=== PATIENT | female | born 1960 | race Caucasian/White ===

== ENCOUNTER → 2019-06-11 | Outpatient (CLI) | payer OTHER ==
--- NOTE | 2019-06-11 15:05 | BD ---
EXAMINATION TYPE: Axial Bone Density DATE OF EXAM: 06/11/2019 COMPARISON: NONE CLINICAL HISTORY: Z 13.820 Height: 63 IN Weight: 159 LBS FRAX RISK QUESTIONS: Family History (Parent hip fracture): YES MOTHER Secondary Osteoporosis: 3. Menopause before 45: AGE 46 RISK FACTORS HISTORY OF: Family History of Osteoporosis: YES MOTHER, AUNTS X 3 (M) Active: YES Postmenopausal woman: AGE 46 Take estrogen and/or progesterone medications: NOT NOW How long: PT TOOK HORMONES AGE 30-31; PROGESTERONE AGE 47- 48 MEDICATIONS: Thyroid Medications: YES Which medication: Levothyroxine How Lon YEARS + Additional Medications: CALCIUM, VIT D, WATER SOLUBLE A,D,E,K; LEVOTHYROXINE, ZYRTEC, AMTIZA, LYRICA, WELLBUTRIN, MOBIC, OMEPRAZOLE, ZOLOFT, AMBIEN, FLONASE, QVAR EXAM MEASUREMENTS: Bone mineral densitometry was performed using the [employer] System. Bone mineral density as measured about the Lumbar spine is: ----- L1-L4(G/cm2): 1.079 T Score Values are as follows: ----- L2: -1.0 ----- L3: -1.5 ----- L4: 0.0 ----- L1-L4: -0.8 Bone mineral density BASELINE Bone mineral density about the R hip (g/cm2): 0.677 Bone mineral density about the L hip (g/cm2): 0.754 T Score values are as follows: -----R Neck: -2.6 -----L Neck: -2.0 -----R Total: -2.7 -----L Total: -2.1 Bone mineral density BASELINE IMPRESSION: Osteoporosis (T Score less than -2.5). There is increased fracture risk and therapy is usually indicated based on age. Re-Screen 1-2 years. NOTE: T-SCORE=SD OF THE YOUNG ADULT MEAN.
--- NOTE | 2019-06-13 10:56 | MM ---
Reason for exam: screening (asymptomatic). Last mammogram was performed 7 years and 6 months ago. History: Patient is postmenopausal, history of other cancer, and is nulliparous. Taking other hormone. Physical Findings: A clinical breast exam by your physician is recommended on an annual basis and results should be correlated with mammographic findings. MG 3D Screening Mammo W/Cad Bilateral CC and MLO view(s) were taken. Prior study comparison: December 22, 2011, mammogram, performed at [facility]. The breast tissue is heterogeneously dense. This may lower the sensitivity of mammography. There is no discrete abnormality. ASSESSMENT: Benign, BI-RAD 2 RECOMMENDATION: Routine screening mammogram of both breasts in 1 year.
== END | disposition home or self-care (01) ==
LOC: RADMAMWWP 13:02
PROVIDERS: ATTEND Family Medicine
DX: Z12.31 Encounter for screening mammogram for malignant neoplasm of breast (principal); Z13.820 Encounter for screening for osteoporosis; M81.0 Age-related osteoporosis without current pathological fracture
CPT/HCPCS: 77063; 77067; 77080